=== PATIENT | male | born 1945 | race Caucasian/White ===

== ENCOUNTER → 2016-05-27 | Outpatient (CLI) | payer MEDICARE ==
[~2016-05-27] VITALS: Ht 170.2 cm; Wt 102.1 kg
[~2016-05-27] MED LIST: AMIT10TA2 OR; ASPI1TAB PO; CALCTAB22 OR; CALCTAB29 PO; CENTTAB16 PO; CLOBETASOL TOP; COLA100C2 OR; CRESTOR PO; FISH1000 OR; FISH5CAP PO; LIDOCAINE 2% INJ 100 MG/5 ML SDV (FOR ANES.) As Ordered ONE; LISIPOW PO; MELOPOW PO; MICONAZOLE NITRATE TOP; MULTIVIT OR; NS 1,000 ML IV SCH; NYSTATIN OINT TOP; PRIL20CA OR; PROPOFOL 500 MG/50 ML VIAL As Ordered ONE; SIMV80TA OR; TERB250T57 PO; VITA500T OR; [UNRECOGNIZED DRUG - CODE] PO; clotrimazole TOP; meloxicam OR; triamcinolone TOP; vitamin D OR
--- NOTE | 2016-05-27 07:59 | ROOR ---
Patient Name: Abhilash Singletary Procedure Date: 05/27/2016 7:30 AM Date of : 1945 Age: 70 Room: [facility] Gender: Male Note Status: Finalized Procedure: Colonoscopy to Cecum + Cold Snare Polypectomy + Hemoclips Indications: Screening for colorectal malignant neoplasm, Last colonoscopy: 2005 Providers: Jared Castro MD Referring MD: Carlos A Kaplan MD Requesting Provider: Medicines: Monitored Anesthesia Care Complications: No immediate complications. Procedure: Pre-Anesthesia Assessment: - The heart rate, respiratory rate, oxygen saturations, blood pressure, adequacy of pulmonary ventilation, and response to care were monitored throughout the procedure. The Colonoscope was introduced through the anus and advanced to the cecum, identified by appendiceal orifice and ileocecal valve. The colonoscopy was performed without difficulty. The patient tolerated the procedure well. The quality of the bowel preparation was excellent. Findings: The perianal and digital rectal examinations were normal. Non-bleeding internal hemorrhoids were found during retroflexion. The hemorrhoids were small and Grade I (internal hemorrhoids that do not prolapse). Scattered small-mouthed diverticula were found in the recto-sigmoid colon, in the sigmoid colon and in the descending colon. A medium polyp was found at 50 cm proximal to the anus. The polyp was sessile. The polyp was removed with a cold snare. Resection and retrieval were complete. To prevent bleeding after the polypectomy, two hemostatic clips were successfully placed (MR conditional). There was no bleeding at the end of the procedure. A small polyp was found in the mid ascending colon. The polyp was sessile. The polyp was removed with a cold biopsy forceps. Resection and retrieval were complete. The exam was otherwise without abnormality on direct and retroflexion views. Impression: - Non-bleeding internal hemorrhoids. - Diverticulosis in the recto-sigmoid colon, in the sigmoid colon and in the descending colon. - One medium polyp at 50 cm proximal to the anus, removed with a cold snare. Resected and retrieved. Clips (MR conditional) were placed. - One small polyp in the mid ascending colon, removed with a cold biopsy forceps. Resected and retrieved. - The examination was otherwise normal on direct and retroflexion views. - The exam was otherwise normal to the cecum. Recommendation: - Patient has a contact number available for emergencies. The signs and symptoms of potential delayed complications were discussed with the patient. Return to normal activities tomorrow. Written discharge instructions were provided to the patient. - High fiber diet. - Discharge patient to home. - Continue present medications. - Await pathology results. - Telephone GI clinic for pathology results in 1 week. - Repeat colonoscopy for surveillance based on pathology results. - Return to referring physician. - The findings and recommendations were discussed with the patient's family. Jared Castro MD Jared Castro MD 05/27/2016 7:59:43 AM This report has been signed electronically. Number of Addenda: 0 Note Initiated On: 05/27/2016 7:30 AM Estimated Blood Loss: Estimated blood loss: none.
[2016-05-27 08:25] VITALS: BP 143/67
== END | disposition home or self-care (01) ==
LOC: M OPP 06:44
PROVIDERS: ATTEND Internal Medicine Gastroenterology
DX: Z12.11 Encounter for screening for malignant neoplasm of colon (principal); K64.0 First degree hemorrhoids; K57.30 Diverticulosis of large intestine without perforation or abscess without bleeding; D12.5 Benign neoplasm of sigmoid colon; D12.2 Benign neoplasm of ascending colon; I10 Essential (primary) hypertension; M19.90 Unspecified osteoarthritis, unspecified site; G47.30 Sleep apnea, unspecified; E78.00 Pure hypercholesterolemia, unspecified; R06.83 Snoring; Z97.2 Presence of dental prosthetic device (complete) (partial); Z79.1 Long term (current) use of non-steroidal anti-inflammatories (NSAID); Z79.82 Long term (current) use of aspirin; Z79.899 Other long term (current) drug therapy

== ENCOUNTER → 2016-07-15 | Outpatient (REF) | payer MEDICARE ==
[~2016-07-15] MED LIST changes: -LIDOCAINE 2% INJ 100 MG/5 ML SDV (FOR ANES.) As Ordered ONE; -NS 1,000 ML IV SCH; -PROPOFOL 500 MG/50 ML VIAL As Ordered ONE
[2016-07-15 12:23] LABS: ALBUMIN 3.6 GM/DL (3.2-5.2); ALBUMIN/GLOBULIN RATIO 1.09 (1.00-1.93); ALKALINE PHOSPHATASE 83 U/L (45-117); ALT/SGPT 19 U/L (12-78); ANION GAP 9 MEQ/L (8-16); AST/SGOT 14 U/L (15-37); BILIRUBIN,TOTAL 0.3 MG/DL (0.2-1.0); BLOOD UREA NITROGEN 18 MG/DL (7-18); CARBON DIOXIDE LEVEL 26 MEQ/L (21-32); CHLORIDE LEVEL 103 MEQ/L (98-107); CHOLESTEROL LEVEL 230 MG/DL (<200); CREATININE FOR GFR 0.71 MG/DL (0.70-1.30); GLOMERULAR FILTRATION RATE > 60.0 (>49); GLUCOSE, FASTING 123 MG/DL (80-110); POTASSIUM SERUM 4.4 MEQ/L (3.5-5.1); SODIUM LEVEL 138 MEQ/L (136-145); TOTAL PROTEIN 6.9 GM/DL (6.4-8.2); TRIGLYCERIDES LEVEL 151 MG/DL (<150)
== END ==
LOC: M SFHCCLAY 07:29
PROVIDERS: ATTEND Family Medicine
DX: E78.2 Mixed hyperlipidemia (principal); R73.01 Impaired fasting glucose; I10 Essential (primary) hypertension

== ENCOUNTER → 2017-02-14 | Outpatient (REF) | payer MEDICARE ==
[~2017-02-14] MED LIST changes: +TERB250T12 PO; -TERB250T57 PO
[2017-02-14 13:31] LABS: ALBUMIN 3.3 GM/DL (3.2-5.2); ALBUMIN/GLOBULIN RATIO 0.97 (1.00-1.93); ALKALINE PHOSPHATASE 80 U/L (45-117); ALT/SGPT 29 U/L (12-78); ANION GAP 8 MEQ/L (8-16); AST/SGOT 15 U/L (15-37); BILIRUBIN,TOTAL 0.3 MG/DL (0.2-1.0); BLOOD UREA NITROGEN 13 MG/DL (7-18); CALCIUM LEVEL 8.5 MG/DL (8.8-10.2); CARBON DIOXIDE LEVEL 28 MEQ/L (21-32); CHLORIDE LEVEL 102 MEQ/L (98-107); CHOLESTEROL LEVEL 182 MG/DL (<200); GLOMERULAR FILTRATION RATE > 60.0 (>42); GLUCOSE, FASTING 109 MG/DL (83-110); POTASSIUM SERUM 4.1 MEQ/L (3.5-5.1); SODIUM LEVEL 138 MEQ/L (136-145); TOTAL PROTEIN 6.7 GM/DL (6.4-8.2); TRIGLYCERIDES LEVEL 86 MG/DL (<150)
== END ==
LOC: M SFHCCLAY 07:13
PROVIDERS: ATTEND Family Medicine
DX: E78.2 Mixed hyperlipidemia (principal); R73.01 Impaired fasting glucose; Z85.46 Personal history of malignant neoplasm of prostate; I10 Essential (primary) hypertension
CPT/HCPCS: 80053; 80061; 83036; 84443; G0103

== ENCOUNTER → 2017-06-20 | Outpatient (CLI) | payer MEDICARE | LOC: M CLY 10:27 | DX: J40 Bronchitis, not specified as acute or chronic (principal); J98.4 Other disorders of lung | CPT/HCPCS: 71046; G0463 ==

== ENCOUNTER → 2017-07-03 | Outpatient (CLI) | payer MEDICARE | LOC: M CLY 15:21 | DX: M25.511 Pain in right shoulder (principal); R05 Cough | CPT/HCPCS: 71046 ==

== ENCOUNTER → 2017-07-28 | Outpatient (CLI) | payer MEDICARE | LOC: M CLY 11:43 | DX: J18.1 Lobar pneumonia, unspecified organism (principal) | CPT/HCPCS: 71046 ==

== ENCOUNTER → 2017-08-14 | Outpatient (REF) | payer MEDICARE ==
[2017-08-14 11:32] LABS: ESTIMATED AVERAGE GLUCOSE 126 MG/DL (60-110)
[2017-08-14 11:39] LABS: ALBUMIN 3.5 GM/DL (3.2-5.2); ALBUMIN/GLOBULIN RATIO 1.03 (1.00-1.93); ALKALINE PHOSPHATASE 70 U/L (45-117); ALT/SGPT 17 U/L (12-78); ANION GAP 7 MEQ/L (8-16); AST/SGOT 12 U/L (7-37); BILIRUBIN,TOTAL 0.4 MG/DL (0.2-1.0); BLOOD UREA NITROGEN 22 MG/DL (7-18); CALCIUM LEVEL 8.5 MG/DL (8.8-10.2); CARBON DIOXIDE LEVEL 26 MEQ/L (21-32); CHLORIDE LEVEL 108 MEQ/L (98-107); CHOLESTEROL LEVEL 213 MG/DL (<200); CREATININE FOR GFR 0.62 MG/DL (0.70-1.30); GLOMERULAR FILTRATION RATE > 60.0 (>42); GLUCOSE, FASTING 103 MG/DL (70-100); HDL CHOLESTEROL 63 MG/DL (>40); NON-HDL-C 150 MG/DL; POTASSIUM SERUM 4.3 MEQ/L (3.5-5.1); SODIUM LEVEL 141 MEQ/L (136-145); TOTAL PROTEIN 6.9 GM/DL (6.4-8.2); TRIGLYCERIDES LEVEL 80 MG/DL (<150)
== END ==
LOC: M SFHCCLAY 08:24
DX: E78.2 Mixed hyperlipidemia (principal); R73.01 Impaired fasting glucose; I10 Essential (primary) hypertension
CPT/HCPCS: 84443

== ENCOUNTER → 2017-08-31 | Outpatient (CLI) | payer MEDICARE | LOC: M CLY 09:15 | DX: J18.1 Lobar pneumonia, unspecified organism (principal) | CPT/HCPCS: 71046 ==

== ENCOUNTER → 2017-10-11 | Outpatient (REF) | payer MEDICARE ==
[2017-10-11 23:57] LABS: PROSTATIC SPECIFIC AG MONITOR < 0.01 NG/ML (< 4.0)
== END ==
LOC: M LABDRAWC 11:12
DX: Z85.46 Personal history of malignant neoplasm of prostate (principal)
CPT/HCPCS: 84153

== ENCOUNTER → 2017-12-08 | Outpatient (REF) | payer MEDICARE ==
[2017-12-08 12:43] LABS: ALT/SGPT 23 U/L (12-78); CHOLESTEROL LEVEL 206 MG/DL (<200); CHOLESTEROL RISK RATIO 3.377 (<5); HDL CHOLESTEROL 61 MG/DL (>40); NON-HDL-C 145 MG/DL; TRIGLYCERIDES LEVEL 110 MG/DL (<150)
== END ==
LOC: M SFHCCLAY 07:26
DX: E78.2 Mixed hyperlipidemia (principal)
CPT/HCPCS: 84460

== ENCOUNTER → 2017-12-29 | Outpatient (CLI) | payer MEDICARE | LOC: M CLY 09:09 | DX: M19.042 Primary osteoarthritis, left hand (principal); M25.532 Pain in left wrist | CPT/HCPCS: 73110 ==

== ENCOUNTER → 2017-12-29 | Outpatient (REF) | payer MEDICARE ==
[2017-12-29 17:24] LABS: ESTIMATED AVERAGE GLUCOSE 123 MG/DL (60-110); HEMOGLOBIN A1c 5.9 %
[2017-12-29 17:26] LABS: ANION GAP 8 MEQ/L (8-16); BLOOD UREA NITROGEN 20 MG/DL (7-18); CALCIUM LEVEL 8.9 MG/DL (8.8-10.2); CARBON DIOXIDE LEVEL 27 MEQ/L (21-32); CHLORIDE LEVEL 106 MEQ/L (98-107); CREATININE FOR GFR 0.61 MG/DL (0.70-1.30); GLOMERULAR FILTRATION RATE > 60.0 (>42); GLUCOSE, FASTING 107 MG/DL (70-100); POTASSIUM SERUM 4.5 MEQ/L (3.5-5.1); SODIUM LEVEL 141 MEQ/L (136-145)
== END ==
LOC: M SFHCCLAY 09:02
DX: I10 Essential (primary) hypertension (principal); R73.01 Impaired fasting glucose
CPT/HCPCS: 83036

== ENCOUNTER → 2018-08-17 | Outpatient (CLI) | payer MEDICARE ==
--- NOTE | 2018-08-17 15:10 | ECGEPIP ---
Stationary ECG Study [facility] Test Date: 2018-08-17 Pat Name: JOSE F PALUMBO Department: Room: - Gender: M [employer]: : 1945 Requested By: TEVIN Bui Order Number: [id number] Reading MD: Erin Perkins Measurements Intervals [place] Rate: 57 P: 47 TN: 171 QRS: 16 QRSD: 88 T: 30 QT: 405 QTc: 395 Interpretive Statements SINUS BRADYCARDIA PVC ABSENT C/W 02/25/13 Electronically Signed On 08-17-2018 15:10:09 EDT by Erin Prekins
[2018-08-17 15:41] LABS: BLOOD UREA NITROGEN 22 MG/DL (7-18); CARBON DIOXIDE LEVEL 28 MEQ/L (21-32); CHLORIDE LEVEL 102 MEQ/L (98-107); CREATININE FOR GFR 0.68 MG/DL (0.70-1.30); GLOMERULAR FILTRATION RATE > 60.0 (>42); GLUCOSE, FASTING 104 MG/DL (70-100); POTASSIUM SERUM 4.4 MEQ/L (3.5-5.1); SODIUM LEVEL 138 MEQ/L (136-145)
== END ==
LOC: M LAB 14:32
PROVIDERS: ATTEND Orthopaedic Surgery
DX: Z01.812 Encounter for preprocedural laboratory examination (principal); G56.02 Carpal tunnel syndrome, left upper limb; M65.312 Trigger thumb, left thumb; R00.1 Bradycardia, unspecified

== ENCOUNTER → 2018-10-18 | Outpatient (REF) | payer MEDICARE ==
[~2018-10-18] MED LIST changes: -ASPI1TAB PO; +ASPI81TA26 PO
== END ==
LOC: M LABDRAWC 17:32
PROVIDERS: ATTEND Physician Assistant
DX: Z85.46 Personal history of malignant neoplasm of prostate (principal)

== ENCOUNTER → 2019-01-15 | Outpatient (REF) | payer MEDICARE ==
[2019-01-15 12:29] LABS: BLOOD UREA NITROGEN 22 MG/DL (7-18); CALCIUM LEVEL 9.2 MG/DL (8.8-10.2); CARBON DIOXIDE LEVEL 27 MEQ/L (21-32); CHLORIDE LEVEL 103 MEQ/L (98-107); GLOMERULAR FILTRATION RATE > 60.0 (>42); GLUCOSE, FASTING 118 MG/DL (70-100); POTASSIUM SERUM 4.2 MEQ/L (3.5-5.1); SODIUM LEVEL 137 MEQ/L (136-145)
== END ==
LOC: M SFHCCLAY 07:29
PROVIDERS: ATTEND Family Medicine
DX: I10 Essential (primary) hypertension (principal); E78.2 Mixed hyperlipidemia

== ENCOUNTER → 2019-01-21 | Outpatient (REF) | payer MEDICARE ==
[2019-01-22 10:51] LABS: ALBUMIN 3.8 GM/DL (3.2-5.2); ALT/SGPT 25 U/L (12-78); BILIRUBIN,TOTAL 0.3 MG/DL (0.2-1.0); BLOOD UREA NITROGEN 22 MG/DL (7-18); CARBON DIOXIDE LEVEL 25 MEQ/L (21-32); CHLORIDE LEVEL 105 MEQ/L (98-107); CHOLESTEROL LEVEL 188 MG/DL (<200); CHOLESTEROL RISK RATIO 3.081 (<5); CREATININE FOR GFR 0.68 MG/DL (0.70-1.30); GLOMERULAR FILTRATION RATE > 60.0 (>42); GLUCOSE, FASTING 138 MG/DL (70-100); HDL CHOLESTEROL 61 MG/DL (>40); LDL CHOLESTEROL 105 MG/DL (<100); NON-HDL-C 127 MG/DL; POTASSIUM SERUM 4.1 MEQ/L (3.5-5.1); SODIUM LEVEL 140 MEQ/L (136-145); TOTAL PROTEIN 6.9 GM/DL (6.4-8.2); TRIGLYCERIDES LEVEL 112 MG/DL (<150)
[2019-01-22 11:15] LABS: HEMOGLOBIN A1c 6.3 %
== END ==
LOC: M SFHCCLAY 07:04
PROVIDERS: ATTEND Family Medicine
DX: E78.2 Mixed hyperlipidemia (principal); I10 Essential (primary) hypertension; R73.01 Impaired fasting glucose

== ENCOUNTER → 2019-07-17 | Outpatient (REF) | payer MEDICARE ==
[2019-07-17 11:43] LABS: BLOOD UREA NITROGEN 22 MG/DL (7-18); CALCIUM LEVEL 8.7 MG/DL (8.8-10.2); CARBON DIOXIDE LEVEL 27 MEQ/L (21-32); CHLORIDE LEVEL 107 MEQ/L (98-107); CREATININE FOR GFR 0.68 MG/DL (0.70-1.30); GLOMERULAR FILTRATION RATE > 60.0 (>42); GLUCOSE, FASTING 129 MG/DL (70-100); POTASSIUM SERUM 4.3 MEQ/L (3.5-5.1); SODIUM LEVEL 140 MEQ/L (136-145)
[2019-07-17 13:16] LABS: HEMOGLOBIN A1c 6.2 %
== END ==
LOC: M SFHCCLAY 07:08
PROVIDERS: ATTEND Family Medicine
DX: R73.01 Impaired fasting glucose (principal); I10 Essential (primary) hypertension

== ENCOUNTER → 2019-11-14 | Outpatient (CLI) | payer MEDICARE ==
[~2019-11-14] MED LIST changes: +ASCO500T PO; +ATOR40TA75 PO; +FLUO20CA20 PO; +FURO20TA2 PO; +PANT40TA3 PO; +POTA1TAB23 PO; +SUCR1TA PO
--- NOTE | 2019-11-14 10:42 | REP ---
Clinical: Epigastric pain. Technique: Real time griffith scale ultrasound examination using curved array transducer. Findings: Liver demonstrates mildly increased echogenicity with poor through transmission suggesting fatty infiltration. No obvious focal hepatic lesion identified. Pancreas is normal. Gallbladder is unremarkable and without gallstones, wall thickening, or pericholecystic fluid. No biliary ductal dilatation appreciated and the common bile duct measures 4.7 mm diameter. The right kidney is normal in reniform shape without hydronephrosis and measures 12.0 x 6.2 x 5.6 cm. No ascites in the visualized right upper quadrant. Impression: 1. Hepatic steatosis. Electronically Signed by Ricky Bowers MD 11/14/2019 10:33 A
== END ==
LOC: M LRY 08:49
PROVIDERS: ATTEND Family Medicine
DX: R10.13 Epigastric pain (principal); K76.0 Fatty (change of) liver, not elsewhere classified

== ENCOUNTER → 2019-11-23 | Outpatient (CLI) | payer MEDICARE ==
[~2019-11-23] MED LIST changes: +PANT40TA29 PO; -PANT40TA3 PO
== END ==
LOC: M LABSMTC 12:24
PROVIDERS: ATTEND Anesthesiology
DX: Z01.818 Encounter for other preprocedural examination (principal); Z11.59 Encounter for screening for other viral diseases
CPT/HCPCS: C9803; U0003

== ENCOUNTER 2019-11-28 07:02 | Day surgery (SDC) | payer MEDICARE ==
[~2019-11-28] VITALS: Ht 172.7 cm; Wt 104.7 kg
[~2019-11-28 07:02] MED LIST changes: +NS 1,000 ML IV ONE
[2019-11-28] MEDS ORDERED: fentaNYL 100 MCG/2 ML INJECTION (J3010) As Ordered ONE (07:04)
[2019-11-28] MEDS ORDERED: LIDOCAINE 2% 100MG/5ML SDV (FOR ANES.) As Ordered ONE (07:07)
[2019-11-28] MEDS ORDERED: propofoL 200 MG/20 ML VIAL As Ordered ONE (07:07)
--- NOTE | 2019-11-28 07:59 | ROOR ---
Patient Name: Abhilash Singletary Procedure Date: 11/28/2019 7:30 AM Date of : 1945 Age: 74 Room: [facility] Gender: Male Note Status: Finalized Procedure: Upper GI endoscopy Indications: Epigastric abdominal pain Providers: Jose James MD Referring MD: Serge Tom MD Requesting Provider: Medicines: Monitored Anesthesia Care Complications: No immediate complications. Procedure: Pre-Anesthesia Assessment: - Prior to the procedure, a History and Physical was performed, and patient medications and allergies were reviewed. The patient is competent. The risks and benefits of the procedure and the sedation options and risks were discussed with the patient. All questions were answered and informed consent was obtained. Patient identification and proposed procedure were verified by the physician, the nurse and the anesthesiologist in the procedure room. Mental Status Examination: alert and oriented. Airway Examination: normal oropharyngeal airway and neck mobility. CV Examination: regular rate and rhythm. Prophylactic Antibiotics: The patient does not require prophylactic antibiotics. Prior Anticoagulants: The patient has taken no previous anticoagulant or antiplatelet agents. ASA Grade Assessment: III - A patient with severe systemic disease. After reviewing the risks and benefits, the patient was deemed in satisfactory condition to undergo the procedure. The anesthesia plan was to use monitored anesthesia care (MAC). Immediately prior to administration of medications, the patient was re-assessed for adequacy to receive sedatives. The heart rate, respiratory rate, oxygen saturations, blood pressure, adequacy of pulmonary ventilation, and response to care were monitored throughout the procedure. The physical status of the patient was re-assessed after the procedure. The Endoscope was introduced through the mouth, and advanced to the second part of duodenum. The upper GI endoscopy was accomplished without difficulty. The patient tolerated the procedure well. Findings: The Z-line was irregular and was found 45 cm from the incisors. Two small tongues of redder mucosa extended about 1-1.5 cm above the Z line. The entire examined stomach was normal. The first portion of the duodenum and second portion of the duodenum were normal. Impression: - Z-line irregular, 45 cm from the incisors. - Normal stomach. - Normal first portion of the duodenum and second portion of the duodenum. - No specimens collected. Recommendation: - Discharge patient to home. - Resume previous diet. - Continue present medications. Jose James MD Jose James MD 11/28/2019 7:58:33 AM Electronically signed by Jose James MD Number of Addenda: 0 Note Initiated On: 11/28/2019 7:30 AM Estimated Blood Loss: Estimated blood loss: none.
[2019-11-28 08:20] VITALS: BP 135/74
== END 2019-11-28 08:21 | disposition home or self-care (01) ==
LOC: M OPP 07:02
PROVIDERS: ATTEND Surgery
DX: K22.8 Other specified diseases of esophagus (principal); R10.13 Epigastric pain; G47.30 Sleep apnea, unspecified; Z79.82 Long term (current) use of aspirin; Z79.899 Other long term (current) drug therapy; Z87.891 Personal history of nicotine dependence; Z88.0 Allergy status to penicillin; Z88.8 Allergy status to other drugs, medicaments and biological substances
CPT/HCPCS: 43235; J3010

== ENCOUNTER → 2020-07-28 | Outpatient (REF) | payer MEDICARE ==
[~2020-07-28] MED LIST changes: -NS 1,000 ML IV ONE
[2020-07-28 12:08] LABS: HEMATOCRIT 37.6 % (42.0-52.0); HEMOGLOBIN 12.5 g/dl (13.5-17.5); MEAN CORPUSCULAR HEMOGLOBIN 30.1 pg (27.0-33.0); MEAN CORPUSCULAR HGB CONC 33.2 g/dl (32.0-36.5); MEAN CORPUSCULAR VOLUME 90.6 fl (80.0-96.0); PLATELET COUNT, AUTOMATED 227 10^3/uL (150-450); RED BLOOD COUNT 4.15 10^6/uL (4.30-6.10); WHITE BLOOD COUNT 6.8 10^3/uL (4.0-10.0)
[2020-07-28 13:49] LABS: ALBUMIN 3.4 GM/DL (3.2-5.2); ALT/SGPT 26 U/L (12-78); BILIRUBIN,TOTAL 0.3 MG/DL (0.2-1.0); BLOOD UREA NITROGEN 22 MG/DL (7-18); CARBON DIOXIDE LEVEL 28 MEQ/L (21-32); CHLORIDE LEVEL 104 MEQ/L (98-107); CHOLESTEROL LEVEL 184 MG/DL (<200); CHOLESTEROL RISK RATIO 3.471 (<5); CREATININE FOR GFR 0.69 MG/DL (0.70-1.30); GLOMERULAR FILTRATION RATE > 60.0 (>42); GLUCOSE, FASTING 119 MG/DL (70-100); HDL CHOLESTEROL 53 MG/DL (>40); LDL CHOLESTEROL 103 MG/DL (<100); NON-HDL-C 131 MG/DL; POTASSIUM SERUM 3.9 MEQ/L (3.5-5.1); PROSTATIC SPECIFIC AG MONITOR < 0.01 NG/ML (< 4.00); SODIUM LEVEL 137 MEQ/L (136-145); TOTAL PROTEIN 6.8 GM/DL (6.4-8.2); TRIGLYCERIDES LEVEL 139 MG/DL (<150)
[2020-07-28 15:33] LABS: HEMOGLOBIN A1c 6.4 %
== END ==
LOC: M SFHCCLAY 07:25
PROVIDERS: ATTEND Family Medicine
DX: G47.33 Obstructive sleep apnea (adult) (pediatric) (principal); I10 Essential (primary) hypertension; R73.01 Impaired fasting glucose; E78.2 Mixed hyperlipidemia; R97.20 Elevated prostate specific antigen [PSA]

== ENCOUNTER → 2020-11-25 | Outpatient (REF) | payer MEDICARE ==
[2020-11-25 16:46] LABS: HEMATOCRIT 39.4 % (42.0-52.0); HEMOGLOBIN 13.3 g/dl (13.5-17.5); MEAN CORPUSCULAR HEMOGLOBIN 30.1 pg (27.0-33.0); MEAN CORPUSCULAR HGB CONC 33.8 g/dl (32.0-36.5); MEAN CORPUSCULAR VOLUME 89.1 fl (80.0-96.0); PLATELET COUNT, AUTOMATED 253 10^3/uL (150-450); RED BLOOD COUNT 4.42 10^6/uL (4.30-6.10); WHITE BLOOD COUNT 7.4 10^3/uL (4.0-10.0)
[2020-11-25 17:00] LABS: HEMOGLOBIN A1c 5.9 %
[2020-11-25 17:14] LABS: BLOOD UREA NITROGEN 16 MG/DL (7-18); CALCIUM LEVEL 8.9 MG/DL (8.8-10.2); CARBON DIOXIDE LEVEL 27 MEQ/L (21-32); CHLORIDE LEVEL 102 MEQ/L (98-107); CREATININE FOR GFR 0.58 MG/DL (0.70-1.30); GLOMERULAR FILTRATION RATE > 60.0 (>42); GLUCOSE, FASTING 92 MG/DL (70-100); IRON (FE) 113 UG/DL (65-175); PERCENT SATURATION 31.2 % (19.7-50.0); POTASSIUM SERUM 4.1 MEQ/L (3.5-5.1); SODIUM LEVEL 136 MEQ/L (136-145); TOTAL IRON BINDING CAPACITY 362 UG/DL (250-450)
== END ==
LOC: M SFHCCLAY 13:32
PROVIDERS: ATTEND Family Medicine
DX: D64.9 Anemia, unspecified (principal); R73.01 Impaired fasting glucose; I10 Essential (primary) hypertension; Z85.46 Personal history of malignant neoplasm of prostate; M54.31 Sciatica, right side
CPT/HCPCS: 80048; 83036; 83550; 85027; G0463

== ENCOUNTER → 2021-02-05 | Outpatient (REF) | payer MEDICARE | LOC: M LABDRAWC 11:27 | PROVIDERS: ATTEND Urology | DX: Z85.46 Personal history of malignant neoplasm of prostate (principal) ==

== ENCOUNTER → 2021-06-01 | Outpatient (CLI) | payer MEDICARE ==
[~2021-06-01] MED LIST changes: +FLUO-96 PO; -FLUO20CA20 PO; -TERB250T12 PO; +TERB250T91 PO
== END ==
LOC: M PLAIMG 10:32
PROVIDERS: ATTEND Family Medicine
DX: M48.062 Spinal stenosis, lumbar region with neurogenic claudication (principal); M47.816 Spondylosis without myelopathy or radiculopathy, lumbar region

== ENCOUNTER → 2021-06-15 | Outpatient (CLI) | payer MEDICARE | LOC: M SOG 10:04 | PROVIDERS: ATTEND Orthopaedic Surgery | DX: M48.061 Spinal stenosis, lumbar region without neurogenic claudication (principal) ==

== ENCOUNTER → 2021-07-27 | Outpatient (REF) | payer MEDICARE ==
[~2021-07-27] MED LIST changes: +FISH1200; +IRON65TA2
[2021-07-27 16:04] LABS: ALBUMIN 3.7 GM/DL (3.2-5.2); ALT/SGPT 28 U/L (12-78); BILIRUBIN,TOTAL 0.6 MG/DL (0.2-1.0); BLOOD UREA NITROGEN 18 MG/DL (7-18); CALCIUM LEVEL 9.2 MG/DL (8.8-10.2); CARBON DIOXIDE LEVEL 30 MEQ/L (21-32); CHLORIDE LEVEL 102 MEQ/L (98-107); CREATININE FOR GFR 0.64 MG/DL (0.70-1.30); GLOMERULAR FILTRATION RATE > 60.0 (>42); GLUCOSE, FASTING 107 MG/DL (70-100); POTASSIUM SERUM 4.4 MEQ/L (3.5-5.1); SODIUM LEVEL 136 MEQ/L (136-145); TOTAL PROTEIN 7.3 GM/DL (6.4-8.2)
[2021-07-27 16:10] LABS: HEMATOCRIT 39.4 % (42.0-52.0); HEMOGLOBIN 13.4 g/dl (13.5-17.5); MEAN CORPUSCULAR HEMOGLOBIN 30.5 pg (27.0-33.0); MEAN CORPUSCULAR VOLUME 89.5 fl (80.0-96.0); PLATELET COUNT, AUTOMATED 229 10^3/uL (150-450); WHITE BLOOD COUNT 6.6 10^3/uL (4.0-10.0)
== END ==
LOC: M SFHCCLAY 10:57
PROVIDERS: ATTEND Family Medicine
DX: Z01.818 Encounter for other preprocedural examination (principal); Z79.899 Other long term (current) drug therapy

== ENCOUNTER → 2021-07-28 | Outpatient (CLI) | payer MEDICARE | LOC: M LABSMTC 10:13 | PROVIDERS: ATTEND Anesthesiology | DX: Z01.818 Encounter for other preprocedural examination (principal); Z11.52 Encounter for screening for COVID-19 ==

== ENCOUNTER 2021-08-02 07:05 | Inpatient (IN) | payer MEDICARE ==
[~2021-08-02] VITALS: Ht 167.6 cm; Wt 106.6 kg
[~2021-08-02 07:05] MED LIST changes: +GABAPENTIN 300 MG CAP PO ONE; +LR 1,000 ML IV ONE; +VANCOMYCIN HCL 1,000 MG, VIAL MATE ADAPTER 1 EACH in NS 250 ML IV ONE; +oxyCODONE 5MG TAB PO ONE
[2021-08-02] MEDS ORDERED: fentaNYL 250 MCG/5 ML INJECTION As Ordered ONE (08:07)
[2021-08-02] MEDS ORDERED: MIDAZOLAM INJ 2MG/2ML VIAL (J2250 PER 1MG) As Ordered ONE (08:07)
[2021-08-02] MEDS ORDERED: ROCURONIUM BROMIDE 50 MG/5 ML VIAL As Ordered ONE ×2 (08:07→10:01)
[2021-08-02] MEDS ORDERED: LIDOCAINE 2% 100MG/5ML SDV (FOR ANES.) As Ordered ONE (08:07)
[2021-08-02] MEDS ORDERED: propofoL 200 MG/20 ML VIAL As Ordered ONE (08:07)
[2021-08-02] MEDS ORDERED: TRANEXAMIC ACID 100 MG/ML 10ML VIAL As Ordered ONE (08:16)
[2021-08-02] MEDS ORDERED: THROMBIN SOLN 20,000 UNITS KIT As Ordered ONE (08:16)
[2021-08-02] MEDS ORDERED: BUPIVACAINE LIPOSOME/PF 1.3% 20ML VIAL (13.3MG/ML)(EXPAREL) As Ordered ONE (08:17)
[2021-08-02] MEDS ORDERED: BUPIVACAINE HCL 0.5% 10ML VIAL As Ordered ONE (08:17)
[2021-08-02] MEDS ORDERED: LIDOCAINE W/EPINEPHRINE 1% 20ML VIAL As Ordered ONE (08:17)
[2021-08-02] MEDS ORDERED: VANCOMYCIN 500MG/10ML VIAL As Ordered ONE ×2 (08:19→13:02)
[2021-08-02] MEDS ORDERED: KETOROLAC 60MG 2ML VIAL As Ordered ONE (10:20)
[2021-08-02] MEDS ORDERED: ONDANSETRON 4MG/2ML VIAL As Ordered ONE (10:20)
[2021-08-02] MEDS ORDERED: dexameTHASONE 4 MG/ML 1ML VIAL (J1100 PER 1MG) As Ordered ONE (10:20)
[2021-08-02] MEDS ORDERED: METOCLOPRAMIDE INJ 10MG/2ML VIAL (J2765 PER 1) As Ordered ONE (10:20)
[2021-08-02] MEDS ORDERED: ACETAMINOPHEN 1000MG 100ML IV BTL (OFIRMEV) (J0131 PER 10MG) As Ordered ONE (10:20)
[2021-08-02] MEDS ORDERED: SUGAMMADEX SODIUM 500 MG/5 ML VIAL (BRIDION) As Ordered ONE (10:20)
[2021-08-02] MEDS ORDERED: ePHEDrine SULFATE 25 MG/5 ML(5MG/ML) SYRINGE As Ordered ONE (10:24)
[2021-08-02 11:29] LABS: HEMATOCRIT 29.6 % (42.0-52.0); MEAN CORPUSCULAR HEMOGLOBIN 30.5 pg (27.0-33.0); MEAN CORPUSCULAR HGB CONC 33.8 g/dl (32.0-36.5); MEAN CORPUSCULAR VOLUME 90.2 fl (80.0-96.0); PLATELET COUNT, AUTOMATED 178 10^3/uL (150-450); RED BLOOD COUNT 3.28 10^6/uL (4.30-6.10); WHITE BLOOD COUNT 5.4 10^3/uL (4.0-10.0)
[2021-08-02] MEDS ORDERED: BUPIVACAINE HCL 0.25% 10ML VIAL As Ordered ONE (12:49)
[2021-08-02] MEDS ORDERED: fentaNYL 100 MCG/2 ML INJECTION As Ordered ONE (13:00)
[2021-08-02 13:57] LABS: HEMATOCRIT 34.4 % (42.0-52.0); HEMOGLOBIN 11.5 g/dl (13.5-17.5); MEAN CORPUSCULAR HEMOGLOBIN 30.8 pg (27.0-33.0); MEAN CORPUSCULAR HGB CONC 33.4 g/dl (32.0-36.5); MEAN CORPUSCULAR VOLUME 92.2 fl (80.0-96.0); PLATELET COUNT, AUTOMATED 207 10^3/uL (150-450); RED BLOOD COUNT 3.73 10^6/uL (4.30-6.10); WHITE BLOOD COUNT 13.9 10^3/uL (4.0-10.0)
[2021-08-02] MEDS ORDERED: METOCLOPRAMIDE INJ 10MG/2ML VIAL (J2765 PER 1) IV PRN (14:20)
[2021-08-02] MEDS ORDERED: oxyCODONE 5MG TAB PO PRN (14:20)
[2021-08-02] MEDS ORDERED: ONDANSETRON 4MG/2ML VIAL IV PRN (14:20)
[2021-08-02] MEDS ORDERED: HYDROMORPHONE HCL 0.5 MG/ 0.5 ML SYRINGE (J1170 PER 1) IV PRN (14:20)
[2021-08-02] MEDS ORDERED: fentaNYL 100 MCG/2 ML INJECTION IV PRN (14:20)
[2021-08-02] MEDS ORDERED: LR 1,000 ML IV SCH (14:20)
[2021-08-02 14:21] LABS: ALBUMIN 2.6 GM/DL (3.2-5.2); ALT/SGPT 22 U/L (12-78); BILIRUBIN,TOTAL 0.5 MG/DL (0.2-1.0); BLOOD UREA NITROGEN 20 MG/DL (7-18); CALCIUM LEVEL 7.6 MG/DL (8.8-10.2); CARBON DIOXIDE LEVEL 22 MEQ/L (21-32); CHLORIDE LEVEL 108 MEQ/L (98-107); CREATININE FOR GFR 0.79 MG/DL (0.70-1.30); GLOMERULAR FILTRATION RATE > 60.0 (>42); GLUCOSE, FASTING 190 MG/DL (70-100); POTASSIUM SERUM 4.4 MEQ/L (3.5-5.1); SODIUM LEVEL 138 MEQ/L (136-145); TOTAL PROTEIN 5.1 GM/DL (6.4-8.2)
[2021-08-02 14:30] VITALS: BP 101/58
[2021-08-02] MEDS ORDERED: PERCOCET 5MG/325MG TAB PO PRN (15:15)
[2021-08-02] MEDS ORDERED: MORPHINE 4 MG/ML 1ML VIAL/SYRINGE IV PRN (15:15)
[2021-08-02 16:00] VITALS: BP 99/61
[2021-08-02] MEDS: LR 1,000 ML IV SCH (16:11)
[2021-08-02] MEDS: ACETAMINOPHEN TAB 650MG DOSE (2X325MG) PO SCH (18:24)
[2021-08-02 20:00] VITALS: BP 112/71
[2021-08-03] MEDS: ACETAMINOPHEN TAB 650MG DOSE (2X325MG) PO SCH ×4 (00:30→17:02)
[2021-08-03] MEDS: PERCOCET 5MG/325MG TAB PO PRN ×2 (02:19→20:49)
[2021-08-03] MEDS: LR 1,000 ML IV SCH (05:24)
[2021-08-03 06:02] VITALS: BP 121/88
[2021-08-03] MEDS ORDERED: MELOXICAM (MOBIC) 7.5 MG TAB PO SCH (09:00)
[2021-08-03 14:00] VITALS: BP 111/66
[2021-08-03] MEDS ORDERED: LORATADINE 10 MG TAB PO ONE (16:40)
[2021-08-03 22:00] VITALS: BP 133/67
[2021-08-04] MEDS: ACETAMINOPHEN TAB 650MG DOSE (2X325MG) PO SCH ×6 (00:46→23:33)
[2021-08-04] MEDS ORDERED: diphenhydrAMINE 50MG/ML VIAL (J1200) IV ONE ×2 (01:00)
[2021-08-04] MEDS ORDERED: FAMOTIDINE 20MG/2ML VIAL IVP ONE (02:00)
[2021-08-04 06:00] VITALS: BP 125/62
[2021-08-04 11:16] LABS: BASO % 0.3 % (0.0-1.0); EOS % 0.2 % (0.0-3.0); HEMATOCRIT 23.4 % (42.0-52.0); LYMPH # 1.4 10^3/uL (1.5-5.0); LYMPH % 15.3 % (24.0-44.0); MEAN CORPUSCULAR HEMOGLOBIN 30.6 pg (27.0-33.0); MEAN CORPUSCULAR HGB CONC 33.8 g/dl (32.0-36.5); MEAN CORPUSCULAR VOLUME 90.7 fl (80.0-96.0); MONO # 1.2 10^3/uL (0.0-0.8); MONO % 13.2 % (2.0-8.0); NEUTROPHILS # 6.5 10^3/uL (1.5-8.5); NEUTROPHILS % 69.6 % (36.0-66.0); PLATELET COUNT, AUTOMATED 151 10^3/uL (150-450); RED BLOOD COUNT 2.58 10^6/uL (4.30-6.10); WHITE BLOOD COUNT 9.3 10^3/uL (4.0-10.0)
[2021-08-04 11:26] LABS: INR 0.99; PROTHROMBIN TIME 13.5 SECONDS (12.7-14.5)
[2021-08-04 11:27] LABS: HEMOGLOBIN 7.9 g/dl (13.5-17.5)
[2021-08-04 11:47] LABS: ALBUMIN 2.7 GM/DL (3.2-5.2); ALT/SGPT 18 U/L (12-78); BILIRUBIN,TOTAL 0.4 MG/DL (0.2-1.0); BLOOD UREA NITROGEN 20 MG/DL (7-18); CALCIUM LEVEL 7.9 MG/DL (8.8-10.2); CARBON DIOXIDE LEVEL 31 MEQ/L (21-32); CHLORIDE LEVEL 104 MEQ/L (98-107); CREATININE FOR GFR 0.59 MG/DL (0.70-1.30); GLOMERULAR FILTRATION RATE > 60.0 (>42); GLUCOSE, FASTING 140 MG/DL (70-100); POTASSIUM SERUM 3.8 MEQ/L (3.5-5.1); SODIUM LEVEL 138 MEQ/L (136-145); TOTAL PROTEIN 5.3 GM/DL (6.4-8.2)
[2021-08-04 14:00] VITALS: BP 116/51
[2021-08-04] MEDS ORDERED: ATOR80TA59 PO (16:19)
[2021-08-04] MEDS: PERCOCET 5MG/325MG TAB PO PRN (20:56)
[2021-08-04 22:00] VITALS: BP 171/74
[2021-08-05] MEDS: ACETAMINOPHEN TAB 650MG DOSE (2X325MG) PO SCH (05:42)
[2021-08-05 08:43] VITALS: BP 171/74
[2021-08-05] MEDS ORDERED: PERCOCET PO (08:50)
[2021-08-05] MEDS ORDERED: ACET1TAB55 PO (08:50)
[2021-08-05] MEDS ORDERED: lisinopriL 5 MG TAB PO SCH (09:00)
[2021-08-05] MEDS ORDERED: ASPIRIN 81MG ENTERIC TABLET PO SCH (09:00)
[2021-08-05] MEDS ORDERED: FUROSEMIDE 20 MG TAB PO SCH (09:00)
[2021-08-05] MEDS ORDERED: POTASSIUM CHLORIDE 10MEQ SR TABLET PO SCH (09:00)
[2021-08-05] MEDS ORDERED: ATORVASTATIN 20 MG TAB PO SCH ×2 (09:00)
[2021-08-05] MEDS ORDERED: PANTOPRAZOLE 40MG TAB (PROTONIX) PO SCH (09:00)
[2021-08-05] MEDS ORDERED: FLUoxetine 20MG CAP PO SCH (09:00)
== END 2021-08-05 11:20 | disposition home or self-care (01) | DRG 518 ==
LOC: M SDC 07:05 → M MS5PR 14:30 → M SDC 08-04 16:05 → M MS5PR 08-04 16:06
PROVIDERS: ADMIT Orthopaedic Surgery; ATTEND Orthopaedic Surgery
PROC: 00Q20ZZ Repair Dura Mater, Open Approach (ICD-10-PCS; 2021-08-02)
PROC: 00NY0ZZ Release Lumbar Spinal Cord, Open Approach (ICD-10-PCS; principal; 2021-08-02 08:30)
DX: M48.062 Spinal stenosis, lumbar region with neurogenic claudication (principal); I62.1 Nontraumatic extradural hemorrhage; G97.41 Accidental puncture or laceration of dura during a procedure; I10 Essential (primary) hypertension; R73.01 Impaired fasting glucose; N52.8 Other male erectile dysfunction; E66.01 Morbid (severe) obesity due to excess calories; K21.9 Gastro-esophageal reflux disease without esophagitis; E78.2 Mixed hyperlipidemia; Z87.891 Personal history of nicotine dependence; Z88.0 Allergy status to penicillin; Z68.37 Body mass index [BMI] 37.0-37.9, adult; Z79.82 Long term (current) use of aspirin; Z79.1 Long term (current) use of non-steroidal anti-inflammatories (NSAID); Z79.899 Other long term (current) drug therapy; Z85.46 Personal history of malignant neoplasm of prostate

== ENCOUNTER → 2021-08-12 | Outpatient (CLI) | payer MEDICARE ==
[~2021-08-12] MED LIST changes: +ACET1TAB55 PO; +ATOR80TA59 PO; -GABAPENTIN 300 MG CAP PO ONE; -LR 1,000 ML IV ONE; +PERCOCET PO; -VANCOMYCIN HCL 1,000 MG, VIAL MATE ADAPTER 1 EACH in NS 250 ML IV ONE; -oxyCODONE 5MG TAB PO ONE
[2021-08-12 15:39] LABS: BASO % 0.5 % (0.0-1.0); EOS # 0.1 10^3/uL (0.0-0.5); EOS % 1.5 % (0.0-3.0); HEMATOCRIT 27.1 % (42.0-52.0); HEMOGLOBIN 9.2 g/dl (13.5-17.5); LYMPH # 1.9 10^3/uL (1.5-5.0); LYMPH % 23.2 % (24.0-44.0); MEAN CORPUSCULAR HEMOGLOBIN 30.9 pg (27.0-33.0); MEAN CORPUSCULAR HGB CONC 33.9 g/dl (32.0-36.5); MEAN CORPUSCULAR VOLUME 90.9 fl (80.0-96.0); MONO # 0.8 10^3/uL (0.0-0.8); MONO % 9.6 % (2.0-8.0); NEUTROPHILS # 5.1 10^3/uL (1.5-8.5); NEUTROPHILS % 62.9 % (36.0-66.0); PLATELET COUNT, AUTOMATED 420 10^3/uL (150-450); RED BLOOD COUNT 2.98 10^6/uL (4.30-6.10); WHITE BLOOD COUNT 8.1 10^3/uL (4.0-10.0)
[2021-08-12 16:18] LABS: ALT/SGPT 24 U/L (12-78); BILIRUBIN,TOTAL 0.3 MG/DL (0.2-1.0); BLOOD UREA NITROGEN 20 MG/DL (7-18); C REACTIVE PROTEIN QUANTITATIV 0.83 MG/DL (0.00-0.30); CALCIUM LEVEL 9.1 MG/DL (8.8-10.2); CARBON DIOXIDE LEVEL 28 MEQ/L (21-32); CHLORIDE LEVEL 102 MEQ/L (98-107); CREATININE FOR GFR 0.63 MG/DL (0.70-1.30); FERRITIN 56 NG/ML (26-388); GLOMERULAR FILTRATION RATE > 60.0 (>42); GLUCOSE, FASTING 97 MG/DL (70-100); POTASSIUM SERUM 4.4 MEQ/L (3.5-5.1); SODIUM LEVEL 137 MEQ/L (136-145); TOTAL PROTEIN 6.6 GM/DL (6.4-8.2)
== END ==
LOC: M LAB 14:53
PROVIDERS: ATTEND Orthopaedic Surgery
DX: M48.062 Spinal stenosis, lumbar region with neurogenic claudication (principal); Z47.89 Encounter for other orthopedic aftercare; Z79.899 Other long term (current) drug therapy

== ENCOUNTER → 2021-09-06 | Outpatient (REF) | payer MEDICARE ==
[2021-09-06 11:27] LABS: BASO % 0.2 % (0.0-1.0); EOS # 0.1 10^3/uL (0.0-0.5); EOS % 2.6 % (0.0-3.0); LYMPH # 1.4 10^3/uL (1.5-5.0); LYMPH % 27.6 % (24.0-44.0); MEAN CORPUSCULAR HEMOGLOBIN 30.7 pg (27.0-33.0); MEAN CORPUSCULAR HGB CONC 32.4 g/dl (32.0-36.5); MONO # 0.6 10^3/uL (0.0-0.8); MONO % 12.6 % (2.0-8.0); NEUTROPHILS # 2.8 10^3/uL (1.5-8.5); PLATELET COUNT, AUTOMATED 229 10^3/uL (150-450); RED BLOOD COUNT 3.58 10^6/uL (4.30-6.10)
[2021-09-06 12:07] LABS: FOLATE 15.5 NG/ML (>5.4); PERCENT SATURATION 12.3 % (19.7-50.0)
== END ==
LOC: M SFHCCLAY 07:23
PROVIDERS: ATTEND Family Medicine
DX: D64.9 Anemia, unspecified (principal)

== ENCOUNTER → 2021-10-05 | Outpatient (CLI) | payer MEDICARE | LOC: M CLY 12:04 | PROVIDERS: ATTEND Physician Assistant | DX: M85.88 Other specified disorders of bone density and structure, other site (principal); M85.812 Other specified disorders of bone density and structure, left shoulder ==

== ENCOUNTER → 2021-11-30 | Outpatient (REF) | payer MEDICARE ==
[2021-11-30 11:47] LABS: HEMATOCRIT 38.9 % (42.0-52.0); HEMOGLOBIN 12.9 g/dl (13.5-17.5); MEAN CORPUSCULAR HEMOGLOBIN 29.5 pg (27.0-33.0); MEAN CORPUSCULAR HGB CONC 33.2 g/dl (32.0-36.5); MEAN CORPUSCULAR VOLUME 88.8 fl (80.0-96.0); PLATELET COUNT, AUTOMATED 185 10^3/uL (150-450); RED BLOOD COUNT 4.38 10^6/uL (4.30-6.10); WHITE BLOOD COUNT 4.6 10^3/uL (4.0-10.0)
[2021-11-30 11:48] LABS: APPEARANCE, URINE CLEAR (CLEAR); BACTERIA, URINE AUTO NEGATIVE (NEGATIVE); BILIRUBIN, URINE AUTO NEGATIVE (NEGATIVE); BLOOD, URINE BLOOD NEGATIVE (NEGATIVE); COLOR, URINE YELLOW (YELLOW); GLUCOSE, URINE (UA) AUTO NEGATIVE (NEGATIVE); KETONE, URINE AUTO NEGATIVE (NEGATIVE); LEUKOCYTE ESTERASE, URINE AUTO NEGATIVE (NEGATIVE); NITRITE, URINE AUTO NEGATIVE (NEGATIVE); PROTEIN, URINE AUTO NEGATIVE (NEGATIVE); RBC, URINE AUTO 2 /HPF (0-3); SPECIFIC GRAVITY URINE AUTO 1.023 (1.002-1.035); SQUAMOUS EPITHELIAL CELL UR AU 0 /HPF (0-6); UROBILINOGEN, URINE AUTO 0.2 mg/dL (0.0-2.0); WBC, URINE AUTO 0 /HPF (0-3)
[2021-11-30 12:02] LABS: ALBUMIN 3.4 GM/DL (3.2-5.2); ALT/SGPT 26 U/L (12-78); BILIRUBIN,TOTAL 0.4 MG/DL (0.2-1.0); BLOOD UREA NITROGEN 25 MG/DL (7-18); CALCIUM LEVEL 8.8 MG/DL (8.8-10.2); CARBON DIOXIDE LEVEL 25 MEQ/L (21-32); CHLORIDE LEVEL 109 MEQ/L (98-107); CHOLESTEROL LEVEL 189 MG/DL (<200); CHOLESTEROL RISK RATIO 4.021 (<5); CREATININE FOR GFR 0.68 MG/DL (0.70-1.30); GLOMERULAR FILTRATION RATE > 60.0 (>42); GLUCOSE, FASTING 126 MG/DL (70-100); HDL CHOLESTEROL 47 MG/DL (>40); IRON (FE) 71 UG/DL (65-175); LDL CHOLESTEROL 115 MG/DL (<100); NON-HDL-C 142 MG/DL; PERCENT SATURATION 21.7 % (19.7-50.0); POTASSIUM SERUM 4.4 MEQ/L (3.5-5.1); SODIUM LEVEL 141 MEQ/L (136-145); TOTAL IRON BINDING CAPACITY 327 UG/DL (250-450); TRIGLYCERIDES LEVEL 135 MG/DL (<150)
== END ==
LOC: M SFHCCLAY 08:03
PROVIDERS: ATTEND Family Medicine
DX: G47.33 Obstructive sleep apnea (adult) (pediatric) (principal); K59.09 Other constipation; D64.9 Anemia, unspecified; Z85.46 Personal history of malignant neoplasm of prostate; Z79.899 Other long term (current) drug therapy

== ENCOUNTER → 2022-02-01 | Outpatient (CLI) | payer MEDICARE | LOC: M SOG 08:34 | PROVIDERS: ATTEND Orthopaedic Surgery | DX: M19.011 Primary osteoarthritis, right shoulder (principal); M19.012 Primary osteoarthritis, left shoulder; M16.0 Bilateral primary osteoarthritis of hip ==

== ENCOUNTER → 2022-02-17 | Outpatient (CLI) | payer MEDICARE | LOC: M PLAIMG 11:08 | PROVIDERS: ATTEND Orthopaedic Surgery | DX: S46.911A Strain of unspecified muscle, fascia and tendon at shoulder and upper arm level, right arm, initial encounter (principal); M25.411 Effusion, right shoulder; M19.011 Primary osteoarthritis, right shoulder; M94.211 Chondromalacia, right shoulder; X58.XXXA Exposure to other specified factors, initial encounter; Y92.9 Unspecified place or not applicable; Y93.9 Activity, unspecified; Y99.9 Unspecified external cause status ==

== ENCOUNTER → 2022-02-28 | Outpatient (CLI) | payer MEDICARE | LOC: M RAD 14:58 | PROVIDERS: ATTEND Orthopaedic Surgery | DX: M51.36 Other intervertebral disc degeneration, lumbar region (principal); M96.1 Postlaminectomy syndrome, not elsewhere classified; M48.061 Spinal stenosis, lumbar region without neurogenic claudication; M47.816 Spondylosis without myelopathy or radiculopathy, lumbar region ==

== ENCOUNTER → 2022-03-30 | Outpatient (REF) | payer MEDICARE ==
[2022-03-30 19:40] LABS: HEMOGLOBIN 12.5 g/dl (13.5-17.5); MEAN CORPUSCULAR HEMOGLOBIN 31.2 pg (27.0-33.0); MEAN CORPUSCULAR HGB CONC 33.8 g/dl (32.0-36.5); MEAN CORPUSCULAR VOLUME 92.3 fl (80.0-96.0); PLATELET COUNT, AUTOMATED 209 10^3/uL (150-450); RED BLOOD COUNT 4.01 10^6/uL (4.30-6.10); WHITE BLOOD COUNT 6.2 10^3/uL (4.0-10.0)
[2022-03-30 20:03] LABS: BLOOD UREA NITROGEN 23 MG/DL (9-23); CARBON DIOXIDE LEVEL 28 MMOL/L (20-31); CHLORIDE LEVEL 99 MMOL/L (98-107); CREATININE FOR GFR 0.61 MG/DL (0.70-1.30); GLOMERULAR FILTRATION RATE > 60.0 (>42); GLUCOSE, FASTING 97 MG/DL (74-106); POTASSIUM SERUM 4.6 MMOL/L (3.5-5.1); SODIUM LEVEL 136 MMOL/L (136-145)
== END ==
LOC: M SFHCCLAY 10:47
PROVIDERS: ATTEND Family Medicine
DX: Z85.46 Personal history of malignant neoplasm of prostate (principal); Z08 Encounter for follow-up examination after completed treatment for malignant neoplasm

== ENCOUNTER → 2022-06-09 | Outpatient (CLI) | payer MEDICARE ==
[~2022-06-09] MED LIST changes: +LISI5TAB11; +MELO7.5T35; +VITA100093 PO
== END ==
LOC: M LABSMTC 11:39
PROVIDERS: ATTEND Anesthesiology
DX: Z01.818 Encounter for other preprocedural examination (principal)

== ENCOUNTER 2022-06-14 07:32 | Day surgery (SDC) | payer MEDICARE ==
[~2022-06-14] VITALS: Ht 167.6 cm; Wt 110.1 kg
[~2022-06-14 07:32] MED LIST changes: +NS 1,000 ML IV ONE
[2022-06-14] MEDS ORDERED: LIDOCAINE 2% 100MG/5ML SDV (FOR ANES.) As Ordered ONE (08:04)
[2022-06-14] MEDS ORDERED: propofoL 200 MG/20 ML VIAL As Ordered ONE ×2 (08:04→08:33)
[2022-06-14 08:55] VITALS: BP 145/82
== END 2022-06-14 09:03 | disposition home or self-care (01) ==
LOC: M OPP 07:32
PROVIDERS: ATTEND Surgery
DX: Z12.11 Encounter for screening for malignant neoplasm of colon (principal); Z86.010 Personal history of colon polyps; K64.0 First degree hemorrhoids; Z79.02 Long term (current) use of antithrombotics/antiplatelets; Z79.1 Long term (current) use of non-steroidal anti-inflammatories (NSAID); Z79.52 Long term (current) use of systemic steroids; Z79.899 Other long term (current) drug therapy; Z88.1 Allergy status to other antibiotic agents; E78.5 Hyperlipidemia, unspecified; I10 Essential (primary) hypertension; Z99.89 Dependence on other enabling machines and devices; G47.33 Obstructive sleep apnea (adult) (pediatric)

== ENCOUNTER → 2022-09-26 | Outpatient (REF) | payer MEDICARE ==
[~2022-09-26] MED LIST changes: -NS 1,000 ML IV ONE
[2022-09-26 11:53] LABS: BASO % 0.4 % (0.0-1.0); EOS # 0.1 10^3/uL (0.0-0.5); EOS % 1.2 % (0.0-3.0); HEMATOCRIT 35.9 % (42.0-52.0); LYMPH # 1.6 10^3/uL (1.5-5.0); LYMPH % 31.5 % (24.0-44.0); MEAN CORPUSCULAR HEMOGLOBIN 30.9 pg (27.0-33.0); MEAN CORPUSCULAR HGB CONC 33.4 g/dl (32.0-36.5); MEAN CORPUSCULAR VOLUME 92.5 fl (80.0-96.0); MONO # 0.7 10^3/uL (0.0-0.8); MONO % 13.3 % (2.0-8.0); NEUTROPHILS # 2.7 10^3/uL (1.5-8.5); NEUTROPHILS % 52.4 % (36.0-66.0); PLATELET COUNT, AUTOMATED 172 10^3/uL (150-450); RED BLOOD COUNT 3.88 10^6/uL (4.30-6.10); WHITE BLOOD COUNT 5.2 10^3/uL (4.0-10.0)
[2022-09-26 12:04] LABS: PROSTATIC SPECIFIC AG MONITOR 0.04 NG/ML (< 4.00)
[2022-09-26 12:06] LABS: ALBUMIN 3.3 G/DL (3.2-5.2); ALKALINE PHOSPHATASE 81 U/L (46-116); ALT/SGPT 23 U/L (7.0-40); AST/SGOT 22 U/L (<34); BILIRUBIN,TOTAL 0.5 MG/DL (0.3-1.2); BLOOD UREA NITROGEN 23 MG/DL (9-23); CALCIUM LEVEL 8.6 MG/DL (8.3-10.6); CARBON DIOXIDE LEVEL 26 MMOL/L (20-31); CHLORIDE LEVEL 107 MMOL/L (98-107); CHOLESTEROL LEVEL 172 MG/DL (<200); CREATININE FOR GFR 0.54 MG/DL (0.70-1.30); GLOMERULAR FILTRATION RATE > 60.0 (>42); GLUCOSE, FASTING 127 MG/DL (74-106); HDL CHOLESTEROL 42.9 MG/DL (>40); LDL CHOLESTEROL 101.9 MG/DL (<100); NON-HDL-C 129.1 MG/DL; POTASSIUM SERUM 4.3 MMOL/L (3.5-5.1); SODIUM LEVEL 137 MMOL/L (136-145); TOTAL PROTEIN 6.5 G/DL (5.7-8.2); TRIGLYCERIDES LEVEL 136 MG/DL (<150)
== END ==
LOC: M SFHCCLAY 07:00
PROVIDERS: ATTEND Family Medicine
DX: E78.2 Mixed hyperlipidemia (principal); I10 Essential (primary) hypertension; Z85.46 Personal history of malignant neoplasm of prostate

== ENCOUNTER → 2023-02-20 | Outpatient (REF) | payer MEDICARE | LOC: M LABDRAWC 12:07 | PROVIDERS: ATTEND Physician Assistant Medical | DX: Z85.46 Personal history of malignant neoplasm of prostate (principal) ==

== ENCOUNTER → 2023-03-29 | Outpatient (REF) | payer MEDICARE ==
[2023-03-29 11:50] LABS: ALBUMIN 3.2 G/DL (3.2-5.2); ALKALINE PHOSPHATASE 72 U/L (46-116); ALT/SGPT 19 U/L (7.0-40); AST/SGOT 17 U/L (<34); BILIRUBIN,TOTAL 0.4 MG/DL (0.3-1.2); BLOOD UREA NITROGEN 24 MG/DL (9-23); CALCIUM LEVEL 8.5 MG/DL (8.3-10.6); CARBON DIOXIDE LEVEL 26 MMOL/L (20-31); CHLORIDE LEVEL 103 MMOL/L (98-107); CREATININE FOR GFR 0.56 MG/DL (0.70-1.30); GLOMERULAR FILTRATION RATE > 60.0 (>42); GLUCOSE, FASTING 131 MG/DL (74-106); POTASSIUM SERUM 4.2 MMOL/L (3.5-5.1); PROSTATIC SPECIFIC AG MONITOR 0.04 NG/ML (< 4.00); SODIUM LEVEL 135 MMOL/L (136-145); TOTAL PROTEIN 6.4 G/DL (5.7-8.2)
[2023-03-29 11:52] LABS: FREE T4 0.86 NG/DL (0.89-1.76); HEMATOCRIT 34.3 % (42.0-52.0); HEMOGLOBIN 11.3 g/dl (13.5-17.5); MEAN CORPUSCULAR HEMOGLOBIN 31.4 pg (27.0-33.0); MEAN CORPUSCULAR HGB CONC 32.9 g/dl (32.0-36.5); MEAN CORPUSCULAR VOLUME 95.3 fl (80.0-96.0); PLATELET COUNT, AUTOMATED 152 10^3/uL (150-450); WHITE BLOOD COUNT 4.6 10^3/uL (4.0-10.0)
[2023-03-29 11:53] LABS: THYROID STIMULATING HORMONE 2.263 uIU/ML (0.55-4.78)
[2023-03-29 12:07] LABS: HEMOGLOBIN A1c 5.8 % (4.0-6.0)
== END ==
LOC: M SFHCCLAY 08:42
PROVIDERS: ATTEND Family Medicine
DX: Z00.00 Encounter for general adult medical examination without abnormal findings (principal); I10 Essential (primary) hypertension; E78.2 Mixed hyperlipidemia; Z85.46 Personal history of malignant neoplasm of prostate; R73.01 Impaired fasting glucose; G47.33 Obstructive sleep apnea (adult) (pediatric)

== ENCOUNTER → 2023-04-17 | Outpatient (REF) | payer MEDICARE ==
[2023-04-17 14:11] LABS: BASO % 0.2 % (0.0-1.0); EOS # 0.1 10^3/uL (0.0-0.5); EOS % 1.1 % (0.0-3.0); HEMATOCRIT 35.5 % (42.0-52.0); HEMOGLOBIN 11.7 g/dl (13.5-17.5); LYMPH # 1.8 10^3/uL (1.5-5.0); LYMPH % 38.5 % (24.0-44.0); MEAN CORPUSCULAR HEMOGLOBIN 31.5 pg (27.0-33.0); MEAN CORPUSCULAR VOLUME 95.7 fl (80.0-96.0); MONO # 0.8 10^3/uL (0.0-0.8); MONO % 17.1 % (2.0-8.0); NEUTROPHILS # 1.9 10^3/uL (1.5-8.5); PLATELET COUNT, AUTOMATED 179 10^3/uL (150-450); RED BLOOD COUNT 3.71 10^6/uL (4.30-6.10); WHITE BLOOD COUNT 4.6 10^3/uL (4.0-10.0)
[2023-04-17 15:09] LABS: PERCENT SATURATION 20.5 % (19.7-50.0)
== END ==
LOC: M SFHCCLAY 07:17
PROVIDERS: ATTEND Family Medicine
DX: D64.9 Anemia, unspecified (principal)

== ENCOUNTER → 2023-07-07 | Outpatient (REF) | payer MEDICARE | LOC: M LABDRAWC 11:27 | PROVIDERS: ATTEND Physician Assistant Medical | DX: Z85.46 Personal history of malignant neoplasm of prostate (principal) ==

== ENCOUNTER → 2023-10-03 | Outpatient (REF) | payer MEDICARE ==
[2023-10-03 17:43] LABS: BASO % 0.2 % (0.0-1.0); EOS % 0.4 % (0.0-3.0); HEMATOCRIT 34.8 % (42.0-52.0); HEMOGLOBIN 11.7 g/dl (13.5-17.5); LYMPH # 1.3 10^3/uL (1.5-5.0); LYMPH % 28.9 % (24.0-44.0); MEAN CORPUSCULAR HEMOGLOBIN 31.2 pg (27.0-33.0); MEAN CORPUSCULAR HGB CONC 33.6 g/dl (32.0-36.5); MEAN CORPUSCULAR VOLUME 92.8 fl (80.0-96.0); MONO # 0.9 10^3/uL (0.0-0.8); NEUTROPHILS # 2.3 10^3/uL (1.5-8.5); PLATELET COUNT, AUTOMATED 142 10^3/uL (150-450); RED BLOOD COUNT 3.75 10^6/uL (4.30-6.10); WHITE BLOOD COUNT 4.6 10^3/uL (4.0-10.0)
[2023-10-03 18:03] LABS: HEMOGLOBIN A1c 5.9 % (4.0-6.0)
[2023-10-03 18:08] LABS: IRON (FE) 79 UG/DL (65-175); PERCENT SATURATION 22.5 % (19.7-50.0); TOTAL IRON BINDING CAPACITY 351 UG/DL (250-425)
[2023-10-03 18:09] LABS: ALBUMIN 3.5 G/DL (3.2-5.2); ALKALINE PHOSPHATASE 82 U/L (46-116); ALT/SGPT 26 U/L (7.0-40); AST/SGOT 15 U/L (<34); BILIRUBIN,TOTAL 0.6 MG/DL (0.3-1.2); BLOOD UREA NITROGEN 18 MG/DL (9-23); CALCIUM LEVEL 9.1 MG/DL (8.3-10.6); CARBON DIOXIDE LEVEL 27 MMOL/L (20-31); CHLORIDE LEVEL 102 MMOL/L (98-107); CHOLESTEROL LEVEL 162 MG/DL (<200); CHOLESTEROL RISK RATIO 3.75 (<5); CREATININE FOR GFR 0.58 MG/DL (0.70-1.30); GLOMERULAR FILTRATION RATE > 60.0 (>42); GLUCOSE, FASTING 123 MG/DL (74-106); HDL CHOLESTEROL 43.2 MG/DL (>40); LDL CHOLESTEROL 101.8 MG/DL (<100); NON-HDL-C 118.8 MG/DL; POTASSIUM SERUM 4.4 MMOL/L (3.5-5.1); PROSTATIC SPECIFIC AG MONITOR 0.04 NG/ML (< 4.00); SODIUM LEVEL 134 MMOL/L (136-145); THYROID STIMULATING HORMONE 2.021 uIU/ML (0.55-4.78); TOTAL PROTEIN 6.9 G/DL (5.7-8.2); TRIGLYCERIDES LEVEL 85 MG/DL (<150)
[2023-10-03 18:10] LABS: FREE T4 1.03 NG/DL (0.89-1.76)
== END ==
LOC: M SFHCCLAY 08:56
PROVIDERS: ATTEND Family Medicine
DX: Z00.00 Encounter for general adult medical examination without abnormal findings (principal); Z85.46 Personal history of malignant neoplasm of prostate; I10 Essential (primary) hypertension; E78.2 Mixed hyperlipidemia; G47.33 Obstructive sleep apnea (adult) (pediatric); R73.01 Impaired fasting glucose; D64.9 Anemia, unspecified

== ENCOUNTER → 2023-12-20 | Outpatient (REF) | payer MEDICARE ==
[2023-12-20 12:04] LABS: CREATININE FOR GFR 0.54 MG/DL (0.70-1.30); GLOMERULAR FILTRATION RATE > 60.0 (>42)
== END ==
LOC: M LABDRAWC 10:49
PROVIDERS: ATTEND Orthopaedic Surgery
DX: Z00.00 Encounter for general adult medical examination without abnormal findings (principal); M54.50 Low back pain, unspecified

== ENCOUNTER → 2024-01-01 | Outpatient (REF) | payer MEDICARE ==
[2024-01-01 13:41] LABS: ALBUMIN 3.5 G/DL (3.2-5.2); ALKALINE PHOSPHATASE 79 U/L (46-116); ALT/SGPT 24 U/L (7.0-40); AST/SGOT 17 U/L (<34); BILIRUBIN,TOTAL 0.5 MG/DL (0.3-1.2); BLOOD UREA NITROGEN 19 MG/DL (9-23); CALCIUM LEVEL 8.8 MG/DL (8.3-10.6); CARBON DIOXIDE LEVEL 27 MMOL/L (20-31); CHLORIDE LEVEL 105 MMOL/L (98-107); CREATININE FOR GFR 0.54 MG/DL (0.70-1.30); GLOMERULAR FILTRATION RATE > 60.0 (>42); GLUCOSE, FASTING 131 MG/DL (74-106); POTASSIUM SERUM 4.2 MMOL/L (3.5-5.1); PROSTATIC SPECIFIC AG MONITOR 0.04 NG/ML (< 4.00); SODIUM LEVEL 135 MMOL/L (136-145)
[2024-01-01 13:42] LABS: THYROID STIMULATING HORMONE 1.735 uIU/ML (0.55-4.78)
== END ==
LOC: M SFHCCLAY 08:39
PROVIDERS: ATTEND Family Medicine
DX: Z00.00 Encounter for general adult medical examination without abnormal findings (principal); I10 Essential (primary) hypertension; E78.2 Mixed hyperlipidemia; G47.33 Obstructive sleep apnea (adult) (pediatric); R73.01 Impaired fasting glucose; Z85.46 Personal history of malignant neoplasm of prostate

== ENCOUNTER → 2024-07-04 | Outpatient (REF) | payer MEDICARE ==
[2024-07-04 13:04] LABS: HEMATOCRIT 35.8 % (42.0-52.0); HEMOGLOBIN 11.7 g/dl (13.5-17.5); MEAN CORPUSCULAR HEMOGLOBIN 29.8 pg (27.0-33.0); MEAN CORPUSCULAR HGB CONC 32.7 g/dl (32.0-36.5); MEAN CORPUSCULAR VOLUME 91.3 fl (80.0-96.0); PLATELET COUNT, AUTOMATED 125 10^3/uL (150-450); RED BLOOD COUNT 3.92 10^6/uL (4.30-6.10); WHITE BLOOD COUNT 4.7 10^3/uL (4.0-10.0)
[2024-07-04 13:06] LABS: TOTAL IRON BINDING CAPACITY 333 UG/DL (250-425)
[2024-07-04 13:07] LABS: FERRITIN 47.6 NG/ML (10.5-307.3); THYROID STIMULATING HORMONE 1.845 uIU/ML (0.55-4.78)
[2024-07-04 13:08] LABS: ALBUMIN 3.4 G/DL (3.2-5.2); ALKALINE PHOSPHATASE 75 U/L (40-129); ALT/SGPT 28 U/L (7.0-40); AST/SGOT 23 U/L (<34); BILIRUBIN,TOTAL 0.5 MG/DL (0.3-1.2); BLOOD UREA NITROGEN 24 MG/DL (9-23); CALCIUM LEVEL 9.1 MG/DL (8.3-10.6); CARBON DIOXIDE LEVEL 25 MMOL/L (20-31); CHLORIDE LEVEL 106 MMOL/L (98-107); CHOLESTEROL LEVEL 184 MG/DL (<200); CHOLESTEROL RISK RATIO 4.03 (<5); CREATININE FOR GFR 0.55 MG/DL (0.70-1.30); GLOMERULAR FILTRATION RATE > 60.0 (>42); GLUCOSE, FASTING 130 MG/DL (74-106); HDL CHOLESTEROL 45.6 MG/DL (>40); IRON (FE) 98 UG/DL (65-175); LDL CHOLESTEROL 120.8 MG/DL (<100); NON-HDL-C 138.4 MG/DL; PERCENT SATURATION 29.4 % (19.7-50.0); POTASSIUM SERUM 4.1 MMOL/L (3.5-5.1); SODIUM LEVEL 141 MMOL/L (136-145); TOTAL PROTEIN 7.1 G/DL (5.7-8.2); TRIGLYCERIDES LEVEL 88 MG/DL (<150)
[2024-07-04 13:15] LABS: HEMOGLOBIN A1c 5.9 % (4.0-6.0)
== END ==
LOC: M SFHCCLAY 09:01
PROVIDERS: ATTEND Physician Assistant
DX: D64.9 Anemia, unspecified (principal); R00.2 Palpitations; I10 Essential (primary) hypertension; K21.9 Gastro-esophageal reflux disease without esophagitis; E78.2 Mixed hyperlipidemia; F41.9 Anxiety disorder, unspecified; R73.01 Impaired fasting glucose; M54.42 Lumbago with sciatica, left side; I83.893 Varicose veins of bilateral lower extremities with other complications; Z85.46 Personal history of malignant neoplasm of prostate

== ENCOUNTER → 2024-07-22 | Outpatient (REF) | payer MEDICARE ==
[2024-07-22 14:09] LABS: CREATININE FOR GFR 0.53 MG/DL (0.70-1.30); GLOMERULAR FILTRATION RATE > 60.0 (>42)
== END ==
LOC: M LABDRAWC 12:29
PROVIDERS: ATTEND Physician Assistant Surgical
DX: M54.50 Low back pain, unspecified (principal)

== ENCOUNTER → 2025-01-02 | Outpatient (CLI) | payer MEDICARE ==
[~2025-01-02] MED LIST changes: +COLA100C5 PO; +IRON65TA2 PO; +PANT20TA6
== END ==
LOC: M RAD 09:20
PROVIDERS: ATTEND Internal Medicine Hematology & Oncology
DX: D69.6 Thrombocytopenia, unspecified (principal); K76.0 Fatty (change of) liver, not elsewhere classified

== ENCOUNTER → 2025-01-06 | Outpatient (REF) | payer MEDICARE | LOC: M LABDRAWC 11:55 | PROVIDERS: ATTEND Urology | DX: Z85.46 Personal history of malignant neoplasm of prostate (principal) ==

== ENCOUNTER → 2025-01-27 | Outpatient (REF) | payer MEDICARE ==
[2025-01-27 12:50] LABS: PLATELET COUNT, AUTOMATED 115 10^3/uL (150-450)
[2025-01-27 13:14] LABS: ALT/SGPT 24 U/L (7.0-40); AST/SGOT 22 U/L (<34); CALCIUM LEVEL 8.3 MG/DL (8.3-10.6); CARBON DIOXIDE LEVEL 27 MMOL/L (20-31); CHLORIDE LEVEL 105 MMOL/L (98-107); CHOLESTEROL LEVEL 151 MG/DL (<200); CHOLESTEROL RISK RATIO 3.67 (<5); CREATININE FOR GFR 0.60 MG/DL (0.70-1.30); GLOMERULAR FILTRATION RATE > 90.0 (>42); IRON (FE) 41 UG/DL (65-175); LDL CHOLESTEROL 88.5 MG/DL (<100); NON-HDL-C 109.9 MG/DL; PERCENT SATURATION 14.0 % (19.7-50.0); POTASSIUM SERUM 4.2 MMOL/L (3.5-5.1); SODIUM LEVEL 137 MMOL/L (136-145); TRIGLYCERIDES LEVEL 107 MG/DL (<150)
[2025-01-27 13:16] LABS: ESTIMATED AVERAGE GLUCOSE 131.0 MG/DL (60-110)
== END ==
LOC: M SFHCCLAY 07:08
PROVIDERS: ATTEND Physician Assistant
DX: Z00.00 Encounter for general adult medical examination without abnormal findings (principal); I10 Essential (primary) hypertension; K21.9 Gastro-esophageal reflux disease without esophagitis; E78.2 Mixed hyperlipidemia; F41.9 Anxiety disorder, unspecified; R73.01 Impaired fasting glucose; D64.9 Anemia, unspecified; D69.6 Thrombocytopenia, unspecified; M54.42 Lumbago with sciatica, left side; I83.893 Varicose veins of bilateral lower extremities with other complications; Z85.46 Personal history of malignant neoplasm of prostate

== ENCOUNTER 2025-03-24 11:20 | Outpatient (CLI) | payer MEDICARE ==
[~2025-03-24] VITALS: Ht 167.6 cm; Wt 104.5 kg
[~2025-03-24 11:20] MED LIST changes: +ALBUTEROL SULFATE 2.5 MG/0.5 ML INH CONCENTRATE NEB SOLN INH PRN; +EPINEPHrine INJ 1 MG/ML 1ML AMP IM PRN; +diphenhydrAMINE 50 MG/ML VIAL IV PRN
[2025-03-24] MEDS ORDERED: diphenhydrAMINE 25MG PO PRIOR TO INFUSION PO ONE (11:30)
[2025-03-24] MEDS ORDERED: ACETAMINOPHEN 650MG PO PRIOR TO INFUSION PO ONE (11:30)
[2025-03-24 11:40] VITALS: BP 121/57; O2SAT 98
[2025-03-24] MEDS: IRON SUCROSE 300 MG in NS 250 ML IV ONE (12:13)
[2025-03-24 14:10] VITALS: BP 154/75; O2SAT 98
== END 2025-03-24 14:10 | disposition home or self-care (01) ==
LOC: M INFU 11:20
PROVIDERS: ATTEND Specialist
DX: D50.9 Iron deficiency anemia, unspecified (principal); Z88.1 Allergy status to other antibiotic agents
CPT/HCPCS: 96365; 96366; J1756

== ENCOUNTER 2025-03-31 11:59 | Outpatient (CLI) | payer MEDICARE ==
[~2025-03-31] VITALS: Ht 167.6 cm; Wt 105.0 kg
[2025-03-31 12:16] VITALS: BP 118/64; O2SAT 97
[2025-03-31] MEDS: IRON SUCROSE 300 MG in NS 250 ML IV ONE (12:34)
[2025-03-31] MEDS: diphenhydrAMINE 25MG IV PRIOR TO INFUSION IV ONE (12:34)
[2025-03-31] MEDS: ACETAMINOPHEN 650MG PO PRIOR TO INFUSION PO ONE (12:34)
[2025-03-31 14:05] VITALS: BP 126/60; O2SAT 99
== END 2025-03-31 14:10 | disposition home or self-care (01) ==
LOC: M INFU 11:59
PROVIDERS: ATTEND Specialist
DX: D50.9 Iron deficiency anemia, unspecified (principal); Z88.1 Allergy status to other antibiotic agents
CPT/HCPCS: 96365; J1756

== ENCOUNTER → 2025-04-01 | Outpatient (CLI) | payer MEDICARE ==
[~2025-04-01] MED LIST changes: -ALBUTEROL SULFATE 2.5 MG/0.5 ML INH CONCENTRATE NEB SOLN INH PRN; -EPINEPHrine INJ 1 MG/ML 1ML AMP IM PRN; -diphenhydrAMINE 50 MG/ML VIAL IV PRN
[2025-04-01 14:35] LABS: BASO # 0.0 10^3/uL (0.0-0.2); BASO % 0.2 % (0.0-1.0); EOS # 0.0 10^3/uL (0.0-0.5); EOS % 0.3 % (0.0-3.0); LYMPH # 1.6 10^3/uL (1.5-5.0); LYMPH % 26.0 % (24.0-44.0); MONO # 2.0 10^3/uL (0.0-0.8); MONO % 32.4 % (2.0-8.0); NEUTROPHILS # 2.4 10^3/uL (1.5-8.5); NEUTROPHILS % 39.9 % (36.0-66.0); PLATELET COUNT, AUTOMATED 120 10^3/uL (150-450)
[2025-04-01 14:37] LABS: ALT/SGPT 20 U/L (7.0-40); AST/SGOT 22 U/L (<34); CALCIUM LEVEL 8.5 MG/DL (8.3-10.6); CARBON DIOXIDE LEVEL 26 MMOL/L (20-31); CHLORIDE LEVEL 103 MMOL/L (98-107); CREATININE FOR GFR 0.58 MG/DL (0.70-1.30); GLOMERULAR FILTRATION RATE > 90.0 (>42); POTASSIUM SERUM 4.2 MMOL/L (3.5-5.1); SODIUM LEVEL 139 MMOL/L (136-145)
== END ==
LOC: M LABDRAWC 07:37
PROVIDERS: ATTEND Internal Medicine Hematology & Oncology
DX: D64.9 Anemia, unspecified (principal); D69.6 Thrombocytopenia, unspecified